=== PATIENT | male | born 1950 | race Caucasian/White ===

== ENCOUNTER 2020-03-02 23:52 | Inpatient (IN) ==
[2020-03-03] MEDS ORDERED: DUONEB (A & A) INH ONE (00:12)
[2020-03-03 00:53] LABS: BASO# 0.07 X1000 (0.0-0.2); BASO% 0.6 % (0.0-0.8); EOS# 0.66 X1000 (0.0-0.7); EOS% 5.3 % (0.0-10.0); HEMATOCRIT 45.2 % (42.0-52.0); HEMOGLOBIN 14.7 g/dL (14.0-18.0); IMM GRAN# 0.05 X1000 (0.0-0.04); IMM GRAN% 0.4 % (0.0-0.5); LYMPH% 13.7 % (20.5-51.1); MCH 29.2 PG (27-31); MCHC 32.5 g/dL (33-37); MCV 89.9 FL (81-99); MONO# 1.39 X1000 (0.11-0.59); MONO% 11.2 % (1.7-9.3); MPV 10.5 FL (7.4-10.4); NEUT# 8.54 X1000 (1.4-6.5); NEUT% 68.8 % (42.2-75.2); PLT 238 X1000 (130-400); RBC 5.03 XMIL (4.7-6.1); RDW 13.2 % (11.5-14.5); WBC 12.41 X1000 (4.8-10.8)
[2020-03-03 01:05] LABS: AGAP 14; ALB/GLOB RATIO 1.4; ALBUMIN 4.3 g/dL (3.5-5.0); ALKALINE PHOSPHATASE 71 U/L (32-122); BUN 16 mg/dL (8-22); CALCIUM 9.2 mg/dL (8.8-10.2); CHLORIDE 97 mmol/L (98-107); COSMO 284; ESTIMATED GFR > 60; GLUCOSE 131 mg/dL (70-104); GOT 20 U/L (10-34); GPT 24 U/L (10-44); POTASSIUM 4.4 mmol/L (3.5-5.1); SODIUM 141 mmol/L (136-145); TCO2 30 mmol/L (25-35); TOTAL BILIRUBIN 0.26 mg/dL (0.20-1.00); TOTAL PROTEIN 7.3 g/dL (6.3-8.3)
[2020-03-03 01:07] LABS: CK PROFILE 211 U/L (24-204)
[2020-03-03 01:27] LABS: CK INDEX 2.4 (0.0-2.5); CK-MB 5.08 ng/mL (0.0-5.0)
--- NOTE | 2020-03-03 01:34 | PROVIDER DOCUMENTATION ---
This chart was entered by Shayy Melendrez Scribe, acting as scribe for John Funez MD. HPI-Respiratory General - General Stated Complaint: sob Time Seen by Provider: 03/03/20 00:11 Source: patient Allergies/Adverse Reactions: Patient Allergies Allergy/AdvReac Type Severity Reaction Status Date / Time No Known Allergies Allergy Verified 01/01/20 13:24 Home Medications: Home Medication List Medication Instructions Recorded Confirmed Last Taken Type Albuterol Sulfate [Proair Hfa] 1 - 2 puff IH TID PRN 11/18/15 01/01/20 10/31/17 History Hydrocodone/APAP 10 mg/325 mg 1 each PO TID 11/18/15 10/31/17 10/31/17 History [[place]-10] [place]-3 Fatty Acids/Fish Oil [Fish 1 each PO DAILY 11/18/15 01/01/20 10/31/17 History Oil 1,000 mg Softgel] Pantoprazole [Protonix] 40 mg PO DAILY 11/18/15 10/31/17 10/31/17 History Simvastatin 20 mg PO DAILY 11/18/15 01/01/20 10/31/17 History Amlodipine [Norvasc] 5 mg PO DAILY #0 tablet 11/22/15 01/01/20 10/31/17 Rx Cyclobenzaprine [Flexeril] 10 mg PO TID #20 tab 10/31/17 Unknown Rx Furosemide 20 mg PO DAILY 10/31/17 10/31/17 10/31/17 History Ibuprofen [Motrin] 800 mg PO Q8H PRN PRN #20 tab 10/31/17 Unknown Rx Omeprazole 20 mg PO DAILY #20 tablet.dr 10/31/17 01/01/20 Unknown Rx Albuterol Sulfate [Ventolin Hfa] 2 puff INH DAILY 01/01/20 01/01/20 Unknown History Cephalexin 500 mg PO BID #14 cap 01/01/20 Unknown Rx - History of Present Illness-Resp Nature of Presenting Problem: pt is a 69 yr old male presenting via EMS from home. pt reports chronic shortness of breath and cough, worse today. pt reports cough, sneezing and sore throat, denies fever/chills. pEMS reports pt room air o2 was 89%, after 4lpm NC and a duoneb tx pt o2 99%. pt does admits chest pain with cough Quality of Pain: reports: none Severity in ED: reports: moderate Onset/Duration: reports: this morning Timing: reports: getting worse Exposure: reports: unknown cause Cough Quality/Degree: reports: moderate, productive cough Episode Frequency: chronic episodes Current Respiratory Medication Therapy: Initiated A/A nebulizer (without relief) Modifying Factors: improves with: exertion (worsens), coughing (induces chest pain) Associated Symptoms: reports: chest pain/soreness, cough, shortness of breath, wheezing. denies: fever/chills, nasal congestion Similar Symptoms Previously?: Yes Recently seen or treated by another doctor?: Yes Review of Systems - Adult - REVIEW OF SYSTEMS - ADULT Constitutional: denies: chills, fever Eyes: reports: no symptoms reported Ears, Nose, Mouth & Throat: reports: no symptoms reported Cardiovascular: denies: chest pain, palpitations, syncope Respiratory: reports: chronic cough, cough, dyspnea on exertion, pleurisy, shortness of breath, wheezing Gastrointestinal: denies: abdominal pain, diarrhea, nausea, vomiting Genitourinary: denies: dysuria, frequency, flank pain Musculoskeletal: denies: muscle aches, muscle weakness Integumentary: reports: no symptoms reported Neurological: denies: dizziness/vertigo, headache/migraines, syncope Psychiatric: reports: no symptoms reported Endocrine: reports: no symptoms reported Hematologic/Lymphatic: reports: no symptoms reported Allergic/Immunologic: reports: no symptoms reported All Other Systems: Reviewed and Negative Past History - Adult - PAST MEDICAL HISTORY-ADULT Review of Records: reports: Old Records Reviewed, Nursing Assessment Review, Medications Reviewed, Social history reviewed & non-contributory. Major Childhood Illnesses: reports: denies history Cardiovascular: reports: HTN, hyperlipidemia Respiratory: reports: asthma Gastrointestinal: reports: denies history Obstetrical/Gynecological: reports: denies history Genitourinary: reports: denies history Musculoskeletal: reports: denies history Neurological: reports: denies history Endocrine/Immune: reports: denies history Other Conditions: reports: other cancer (skin) - IMMUNIZATION STATUS Childhood Immunizations: See Nurse Assessment Flu Vaccine: See Nurse Assessment - FAMILY HISTORY Family History: reviewed, not pertinent - SOCIAL HISTORY Smoking: denies Substance Use: denies Living Situation: family Physical Exam-General - PHYSICAL EXAM-ADULT Initial Vital Signs Reviewed: Yes - CONSTITUTIONAL General Appearance: alert, no apparent distress - EYES Eyes: PERRL/EOMI - HEAD, EARS, NOSE, MOUTH & THROAT HENMT: normocephalic/atraumatic, normal ENT inspection. negative: moist mucous membranes (dry oral mucosa) - NECK Neck: non-tender, full range of motion, supple, normal inspection - RESPIRATORY Respiratory: chest non-tender, no respiratory distress, accessory muscle use, wheezing (diffuse wheezing), increased rate - CARDIOVASCULAR Cardiovascular: normal peripheral pulses, tachycardia - GASTROINTESTINAL (ABDOMEN) Abdominal Exam: normal bowel sounds, non tender, soft, hernia (ventral wall hernia) - LYMPHATIC Lymphatic: no adenopathy - MUSCULOSKELETAL Back Exam: normal inspection Extremity: normal range of motion, non-tender, pedal edema (trace) - SKIN Integumentary: normal color, normal turgor, warm/dry - NEUROLOGIC Neurologic: grossly normal - PSYCHIATRIC Psych/Mental Status: normal mood/affect Progress - PLAN OF CARE/RESULTS Progress/Plan/Lab Results: Vital Signs - 8 hr 03/03/20 00:32 03/03/20 00:43 Temperature 98.6 F Pulse Rate 115 H 110 H Respiratory Rate 29 H 25 H Blood Pressure 139/90 O2 Sat by Pulse Oximetry 96 96 Laboratory Results - last 24 hr 03/03/20 03/03/20 03/03/20 00:28 00:28 00:28 WBC RBC Hgb Hct MCV MCH MCHC RDW Std Deviation Plt Count MPV Immature Gran % (Auto) Neut % (Auto) Lymph % (Auto) [place] % (Auto) Eos % (Auto) Baso % (Auto) Immature Gran # (Auto) Neut # (Auto) Lymph # (Auto) [place] # (Auto) Eos # (Auto) Baso # (Auto) PTT (Actin FS) Sodium 141 Potassium 4.4 Chloride 97 L Carbon Dioxide 30 Anion Gap 14 BUN 16 Creatinine 1.0 Estimated GFR/1.73 m2 > 60 BUN/Creatinine Ratio 16 Glucose 131 H Calculated Osmolality 284 Calcium 9.2 Total Bilirubin 0.26 AST 20 ALT 24 Alkaline Phosphatase 71 Creatine Kinase 211 H Creatine Kinase Index 2.4 CK-MB (CK-2) 5.08 H Troponin T High Sens 16 Nwe-N-Vzazpuxnurk Pept 170 Total Protein 7.3 Albumin 4.3 Globulin 3.0 Albumin/Globulin Ratio 1.4 Plasma Lactate 03/03/20 03/03/20 03/03/20 00:28 00:28 00:28 WBC 12.41 H RBC 5.03 Hgb 14.7 Hct 45.2 MCV 89.9 MCH 29.2 MCHC 32.5 L RDW Std Deviation 13.2 Plt Count 238 MPV 10.5 H Immature Gran % (Auto) 0.4 Neut % (Auto) 68.8 Lymph % (Auto) 13.7 L [place] % (Auto) 11.2 H Eos % (Auto) 5.3 Baso % (Auto) 0.6 Immature Gran # (Auto) 0.05 H Neut # (Auto) 8.54 H Lymph # (Auto) 1.70 [place] # (Auto) 1.39 H Eos # (Auto) 0.66 Baso # (Auto) 0.07 PTT (Actin FS) 28.7 Sodium Potassium Chloride Carbon Dioxide Anion Gap BUN Creatinine Estimated GFR/1.73 m2 BUN/Creatinine Ratio Glucose Calculated Osmolality Calcium Total Bilirubin AST ALT Alkaline Phosphatase Creatine Kinase Creatine Kinase Index CK-MB (CK-2) Troponin T High Sens [id number]-Jquoywqbpah Pept Total Protein Albumin Globulin Albumin/Globulin Ratio Plasma Lactate 1.0 Orders Category Date Time Status Cardiac Monitoring NOW Care 03/03/20 00:38 Active NEWS Score >or=5:Order NEWS Bundle S.O. NOW Care 03/03/20 00:38 Active Notify Provider of NEWS Score NOW Care 03/03/20 00:38 Active CHEST-PORTABLE [RAD] Stat Exams 03/03/20 00:10 Taken BLOOD CULTURE [BLDCUL] Stat Lab 03/03/20 00:10 Results CBC WITH ELECTRONIC DIFF [HEME] Stat Lab 03/03/20 00:28 Completed CK PROFILE [SP CHEM] Stat Lab 03/03/20 00:28 Completed COMPREHENSIVE METABOLIC PANEL [CHEM] Stat Lab 03/03/20 00:28 Completed LACTATE, PLASMA [CHEM] Lab 03/03/20 03:45 Uncollected LACTATE, PLASMA [CHEM] Lab 03/03/20 06:45 Uncollected LACTATE, PLASMA [CHEM] Q3H Lab 03/03/20 00:28 Completed PRO B-NATRIURETIC PEPTIDE Stat Lab 03/03/20 00:28 Completed PTT [COAG] Stat Lab 03/03/20 00:28 Completed TROPONIN T HIGH SENSITIVITY Stat Lab 03/03/20 00:28 Completed URINALYSIS W/POSS RFLX CULT [URINALYSIS] Stat Lab 03/03/20 00:38 Uncollected Albuterol 2.5MG/Ipratrop 0.5MG [Duoneb (A & A)] Med 03/03/20 00:12 Discontinued 9 ml INH NOW ONE Azithromycin 500 mg/Ns [Zithromax 500 mg/Ns] Med 03/03/20 02:00 Active 500 mg in 250 ml IV Q24H CefTRIAXONE [Rocephin] 1 gm Med 03/03/20 01:50 Discontinued 0.9% Sodium Chloride Inj [Ns] 50 ml IV NOW Aerosol Treatments Routine Oth 03/03/20 00:15 Completed Aerosol Treatments Stat Oth 03/03/20 00:15 Completed O2 Per Protocol Stat Oth 03/03/20 00:38 Completed Result Diagrams: 03/03/20 00:28 03/03/20 00:28 - REASSESSMENT Reassessment #1 Time Reassessed: 00:55 Status: improving - EKG 1 Time of EKG reading by physician:: 00:13 EKG Read and Signed by:: John Funez EKG Interpretation (*Must complete 3 of following elements*): Abnormal (left posterior fasicular block) Rate: 113 Rhythm: sinus tach [place]: normal QRS: normal ID Interval: normal ST Wave: normal - CONSULTS/PCP/HOSPITALIST Notification #1 *Consult/PCP/Hospitalist*: d/w Dr Martinez Time Discussed: 01:55 Consult Disposition: Admit Departure - Departure Date of Disposition Decision: 03/03/20 Time of Disposition Decision: 02:05 DIAGNOSIS: Acute exacerbation of chronic obstructive pulmonary disease (COPD), Acute respiratory failure with hypoxemia Disposition: ADMITTED INPATIENT 09 Certified Medical Emergency: Emergent Condition: Stable - Critical Care Note This patient required my direct & personal management of CC.: No Attestation - Physician/ RUDY Attestation Patient care was provided by Advanced Practice Provider:: No The physician spent face to face time with patient:: Yes Advanced Practice Provider documentation review:: Supervising physician onsite and consulted in the evaluation and care of this patient. The physician did have a face to face encounter with the patient. This chart was documented by the indicated scribe, (Shayy Melendrez Scribe) and accurately reflects the services I performed and decisions made by me, John Funez MD, as attested by the provider's signature.
[2020-03-03] MEDS ORDERED: ROCEPHIN 1 GM in NS 50 ML IV ONE (01:50)
[2020-03-03] MEDS: ZITHROMAX 500 MG/NS 500 MG/250 ML IVPB IV SCH (02:00)
[2020-03-03] MEDS ORDERED: SOLU-MEDROL IV ONE (02:40)
[2020-03-03 03:02] LABS: HEMOGLOBIN A1C 5.9 % (4.8-6.0)
[2020-03-03 03:42] LABS: URINE SOURCE CLEAN CATCH
[2020-03-03] MEDS ORDERED: TYLENOL PO PRN (03:59)
[2020-03-03] MEDS ORDERED: ZOFRAN IV PRN (03:59)
[2020-03-03] MEDS ORDERED: DUONEB (A & A) INH SCH (04:00)
[2020-03-03 04:10] LABS: BILIRUBIN URINE NEGATIVE (NEGATIVE); BLOOD URINE NEGATIVE (NEGATIVE); COLOR STRAW; GLUCOSE URINE NEGATIVE (NEGATIVE); KETONE URINE NEGATIVE (NEGATIVE); LEUKOCYTES URINE NEGATIVE (NEGATIVE); NITRITE URINE NEGATIVE (NEGATIVE); PROTEIN URINE NEGATIVE (NEGATIVE); TURBIDITY URINE CLEAR (CLEAR); UROBILINOGEN URINE NORMAL (NORMAL)
[2020-03-03 04:11] LABS: UR EPITHELIAL CELLS <10 /HPF (<10); URINE BACTERIA NEGATIVE /HPF; URINE RBC <10 /HPF (<10); URINE WBC <10 /HPF (<10)
[2020-03-03] MEDS: NS 1,000 ML IV SCH ×2 (04:27→21:21)
[2020-03-03] MEDS: LOVENOX SUBQ SCH (04:27)
[2020-03-03 04:28] LABS: ALLEN TEST YES; BE 3.1 mmoll (-3.0-3.0); BLOOD TYPE ARTERIAL; HCO3-(ACT) 27.3 mmoll (20.0-26.0); O2(CT) 21.4 mL/dL (15.0-23.0); O2HB 97.3 % (95.0-99.0); PO2(98.6) 191 mmHg (60-100); SAMPLE BLOOD; SAO2 99.9 % (95.0-100.0); THB 15.4 g/dL (11.5-17.4); pH(98.6) 7.36 (7.35-7.45)
[2020-03-03 04:30] LABS: MODALITY NRB; PCO2(98.6) 53 mmHg (35-45)
--- NOTE | 2020-03-03 04:54 | HISTORY AND PHYSICAL ---
CHIEF COMPLAINT: Shortness of breath. HPI: Mr. Shelley is a 69-year-old male who has chronic shortness of breath with COPD. States that his cough has gotten worse and the shortness of breath was worse today. He has had sneezing and sore throat. Denies any fever or chills. He was hypoxic on room air and placed on nasal cannula 4L and was brought up to 99%. He is having pain in his chest related to the cough but no true cardiac-sounding chest pain. Also he has noticed wheezing. He is a fairly poor historian. Also he is disoriented as to what year it is. He is oriented to person and place. Noted to be fairly tachypneic in the emergency room with inspiratory and expiratory wheezing. A chest x-ray showed chronic COPD changes polus/minus infiltrates. He will be admitted to [facility] for further evaluation and treatment. PAST MEDICAL HISTORY: Hypertension, degenerative disc disease in the lumbar spine, COPD, obesity. PREVIOUS SURGICAL HISTORY: Cholecystectomy. SOCIAL HISTORY: He is a previous smoker. He quit 2-3 years ago. He was over a [id number] smoker for many years. No alcohol. No illicit drugs. FAMILY HISTORY: Positive for hypertension. ALLERGIES: No known drug allergies. HOME MEDICATIONS: The list is pending. REVIEW OF SYSTEMS: A 14-point review of systems was conducted with the patient. Pertinent positives listed above in the HPI. All other systems were reviewed and found to be negative. PHYSICAL EXAMINATION: VITAL SIGNS: Temperature 98.6, pulse 110, respirations 25, blood pressure 139/90, oxygen saturation 92% on 2L nasal cannula. GENERAL: Pleasant, somewhat confused 69-year-old male lying in the ER stretcher. He is alert. He is oriented to person, place, and situation. He is disoriented to time. He is tachypneic, in mild respiratory distress. HEENT: Head is atraumatic, normocephalic. Pupils equal, round, react to light. Extraocular eye movements intact. Sclera anicteric. Conjunctiva pink. Oral mucosa is dry. NECK: Supple, no JVD, no thyromegaly. Trachea is midline. No cervical lymphadenopathy. CARDIAC: S1, S2 are appreciated. No murmurs, gallops, rubs. Heart tones are distant. LUNGS: Inspiratory and expiratory wheezing noted. Crepitations noted throughout bilateral lung sifuentes. Decreased airway entry. ABDOMEN: Protuberant, soft and nondistended, nontender. Bowel sounds hypoactive all 4 quadrants. No pulsatile mass. No organomegaly. EXTREMITIES: No clubbing, cyanosis or edema. 2+ pedal pulses bilaterally. GENITOURINARY: No bladder distention. Patient voids. Otherwise deferred. NEUROLOGICAL: Is alert and oriented to person, place and situation. Disoriented to time. Cranial nerves 2-12 appear to be grossly intact. DIAGNOSTIC DATA: A chest x-ray shows chronic COPD changes plus/minus infiltrate. LABORATORY DATA: WBC 12.41, hemoglobin 14.7, hematocrit 45.2, platelet count 238,000. Sodium 141, potassium 4.4, chloride 97, carbon dioxide 30, BUN 16, creatinine 1, glucose 131. ASSESSMENT: 1. Chronic obstructive pulmonary disease. 2. Probable bacterial pneumonia. 3. Hypertension. 4. Chronic pain syndrome. 5. Hyperlipidemia. PLAN: Admit patient to the [facility]. DuoNebs q.6h. Will give Solu-Medrol 125 mg now. Will give Solu- Medrol IV 60 mg every 8 hours for 3 doses. Check hemoglobin A1c. Will give azithromycin and Rocephin IV. DuoNebs q.6h. Place on healthy heart diet. Will restart his home medications once they are reconciled. Further recommendations based on patient's clinical course. Dictated by MELIDA Avila for Tavon Martinez MD cc: MELIDA Avila MD
--- NOTE | 2020-03-03 06:42 | Diag Imaging Result Doc PS360 ---
CHEST-PORTABLE - 03/03/2020 INDICATION: sob COMPARISON: 01/05/2019 FINDINGS: The lungs are normally expanded and clear. Heart size and mediastinal contours are normal. No pneumothorax or pleural effusion. IMPRESSION: Negative exam. Electronically signed by Alfonso Mendosa 03/03/2020 6:40 AM
--- NOTE | 2020-03-03 07:04 | EKG Report ---
Test Performed on : 03/03/2020 00:13:40 AM Test Reason : ER Blood Pressure : / mmHG Vent. Rate : 113 BPM Atrial Rate : 113 BPM P-R Int : 190 ms QRS Dur : 106 ms QT Int : 322 ms P-R-T Axes : 000 141 143 degrees QTc Int : 441 ms Sinus tachycardia. Left posterior fascicular block Abnormal ECG When compared with ECG of 18-NOV-2015 22:21, fusion complexes are no longer present Unconfirmed Result
[2020-03-03] MEDS: SOLU-MEDROL IV SCH ×2 (11:08→19:12)
[2020-03-03] MEDS: ROCEPHIN 1 GM in NS 50 ML IV SCH (11:08)
--- NOTE | 2020-03-03 11:38 | PROGRESS NOTE ---
DATE: 03/03/2020 The patient admitted with progressive cough and dyspnea. May have been slightly hypoxic in route, but was at 96 on 2 L here. Later transitioned to non- rebreather for reasons that are not entirely clear. Has been sitting and saturating 99 to 100 on that so will wean oxygen down. Initial chest x-ray not really showing any thickening, but currently on empiric antibiotics for possible pneumonia with Rocephin and azithromycin. Does have some wheezing and decreased air entry on exam, so favor a viral illness with COPD exacerbation, on IV steroids. He was on nebulizer treatments, but stopped that and changed him over to inhaler until his Covid status is confirmed. ABG shows likely chronic hypercapnic respiratory failure, but may have a small acute component as his pH is level on the low normal side. PO2 more than adequate at 191 on non-rebreather, also confirming that we have significant room to wean his oxygen down. Continue monitoring. VINICIO
[2020-03-03] MEDS: VENTOLIN HFA INH SCH ×4 (11:56→23:20)
[2020-03-04] MEDS ORDERED: ZITHROMAX 500 MG/NS 500 MG/250 ML IVPB IV SCH (02:00)
[2020-03-04] MEDS: ZITHROMAX 500 MG/NS 500 MG/250 ML IVPB IV SCH (03:04)
[2020-03-04] MEDS: SOLU-MEDROL IV SCH ×4 (03:05→22:31)
[2020-03-04] MEDS: VENTOLIN HFA INH SCH ×6 (04:08→22:45)
[2020-03-04 05:09] LABS: BASO# 0.02 X1000 (0.0-0.2); BASO% 0.2 % (0.0-0.8); HEMATOCRIT 43.8 % (42.0-52.0); HEMOGLOBIN 14.3 g/dL (14.0-18.0); IMM GRAN# 0.06 X1000 (0.0-0.04); IMM GRAN% 0.5 % (0.0-0.5); LYMPH# 0.93 X1000 (1.2-3.4); MCH 29.5 PG (27-31); MCHC 32.6 g/dL (33-37); MCV 90.5 FL (81-99); MONO# 0.72 X1000 (0.11-0.59); MONO% 5.4 % (1.7-9.3); MPV 10.7 FL (7.4-10.4); NEUT# 11.49 X1000 (1.4-6.5); NEUT% 86.9 % (42.2-75.2); PLT 282 X1000 (130-400); RBC 4.84 XMIL (4.7-6.1); RDW 13.2 % (11.5-14.5); WBC 13.22 X1000 (4.8-10.8)
[2020-03-04 05:31] LABS: AGAP 10; BUN 20 mg/dL (8-22); CALCIUM 9.3 mg/dL (8.8-10.2); CHLORIDE 99 mmol/L (98-107); COSMO 275; CREATININE 0.8 mg/dL (0.7-1.2); ESTIMATED GFR > 60; GLUCOSE 147 mg/dL (70-104); POTASSIUM 4.7 mmol/L (3.5-5.1); SODIUM 135 mmol/L (136-145); TCO2 26 mmol/L (25-35)
[2020-03-04 05:39] LABS: LYMPHS 14 % (21-51); SEGS 86 % (42-75)
[2020-03-04 06:20] LABS: ALLEN TEST YES; BE 0.9 mmoll (-3.0-3.0); BLOOD TYPE ARTERIAL; HCO3-(ACT) 25.6 mmoll (20.0-26.0); METHB 1.4 % (0.0-1.5); O2(CT) 21.3 mL/dL (15.0-23.0); O2HB 96.1 % (95.0-99.0); PCO2(98.6) 48 mmHg (35-45); PO2(98.6) 103 mmHg (60-100); SAMPLE BLOOD; SAO2 99.1 % (95.0-100.0); THB 15.7 g/dL (11.5-17.4); pH(98.6) 7.36 (7.35-7.45)
[2020-03-04 06:22] LABS: MODALITY VENTIMASK
[2020-03-04] MEDS: LOVENOX SUBQ SCH (09:39)
[2020-03-04] MEDS: ROCEPHIN 1 GM in NS 50 ML IV SCH (09:40)
[2020-03-04] MEDS: ZOCOR PO SCH (09:40)
--- NOTE | 2020-03-04 10:36 | Diag Imaging Result Doc PS360 ---
EXAM: CT ANGIOGRM PULMONARY ARTERIES HISTORY: Rule out PE TECHNIQUE: CT chest with intravenous contrast. Pulmonary arterial protocol with MIP images. COMPARISON: None. FINDINGS: No pleural effusions. No aortic aneurysm or dissection. No cardiomegaly. Moderate atherosclerosis. Normal opacification of the pulmonary arteries and their proximal branches. No enlarged lymph nodes. No consolidation or smaller infiltrates. No bronchiectasis. Limited images through the upper abdomen reveal fatty infiltration of the liver and a cholecystectomy. IMPRESSION: No pulmonary emboli. This exam was performed using automated exposure control, adjustment of mA or kV according to patient size, and/or use of iterative reconstruction technique. Electronically signed by Jose G Love 03/04/2020 10:33 AM
[2020-03-04] MEDS: MYLICON PO SCH (10:54)
[2020-03-04] MEDS: NORVASC PO SCH (10:54)
--- NOTE | 2020-03-04 12:33 | PROGRESS NOTE ---
DATE: 03/04/2020 Mr. Shelley was admitted with COPD exacerbation. He had persistent cough, shortness of breath. COVID-19 test has been ordered. He is under isolation at the present time. His vital signs are stable. Has persistent wheezing. Overall condition is otherwise unchanged. We just ordered a flu test, influenza virus test to make sure that he does not have the flu. He is on IV methylprednisolone, Solu-Medrol 40 mg every 6 hours, which was started just this morning. We can gradually taper that off. Overall prognosis is fair. cc: Lloyd Matute MD
--- NOTE | 2020-03-04 13:26 | CONSULTATION ---
DATE OF CONSULTATION: 03/04/2020 CHIEF COMPLAINT: Evaluation for shortness of breath and COPD exacerbation. HISTORY OF PRESENTING ILLNESS: This is a 69-year-old man, known to have COPD, presented with shortness of breath and wheezing. I sent him because of the significant AA gradient on initial blood gases and chest CT angiogram, and it came back showing no PE. PAST MEDICAL HISTORY: COPD, hypertension, chronic pain syndrome, reflux disease, hyperlipidemia, otherwise as per history of presenting illness and noncontributory. PAST SURGICAL HISTORY: As above, otherwise noncontributory. SOCIAL HISTORY: He is a remote ex-smoker. FAMILY HISTORY: Hypertension. REVIEW OF SYSTEMS: As detailed in the history of presenting illness, otherwise noncontributory. MEDICATIONS: Reviewed in the hospital and at home ALLERGIES: No known drug allergies. CURRENT MEDICATIONS IN THE HOSPITAL: Include azithromycin, ceftriaxone and methylprednisone. PHYSICAL EXAMINATION: Vital Signs: Noted. Pulse oximetry 95 percent on 3 L nasal cannula. Head and neck: Examined. Trachea midline. Chest Exam: A few bilateral wheezes and prolonged expiratory phase. Cardiac Exam: Second prolonged expiratory phase. S1, S2. Abdomen: Exam nontender. Extremity examination: +1 pedal edema. Neurologic exam: Awake and communicative. LABS/INVESTIGATIONS: CBC, CMP seen and CT angiogram as detailed above. WBCs 15.22. ASSESSMENT AND PLAN: A 69-year-old man with past history as above, came in with hypoxia, chronic respiratory failure with some acute worsening, but compensated currently and chronic obstructive pulmonary disease exacerbation. Pulmonary embolus was ruled out. Continue steroids and antibiotics. We are titrating oxygen to patient needs. cc: MD Lloyd Nixon MD [facility]
[2020-03-05] MEDS: ZITHROMAX 500 MG/NS 500 MG/250 ML IVPB IV SCH (02:11)
[2020-03-05] MEDS: SOLU-MEDROL IV SCH ×4 (02:15→21:42)
[2020-03-05] MEDS: VENTOLIN HFA INH SCH ×3 (03:59→11:19)
[2020-03-05 05:13] LABS: ALLEN TEST YES; BE 4.5 mmoll (-3.0-3.0); BLOOD TYPE ARTERIAL; HCO3-(ACT) 28.3 mmoll (20.0-26.0); METHB 1.3 % (0.0-1.5); O2(CT) 20.3 mL/dL (15.0-23.0); O2HB 92.6 % (95.0-99.0); PO2(98.6) 68 mmHg (60-100); SAMPLE BLOOD; SAO2 95.7 % (95.0-100.0); THB 15.6 g/dL (11.5-17.4); pH(98.6) 7.39 (7.35-7.45)
[2020-03-05 05:16] LABS: MODALITY CANNULA
[2020-03-05 05:17] LABS: PCO2(98.6) 51 mmHg (35-45)
[2020-03-05] MEDS: PRILOSEC PO SCH (06:02)
[2020-03-05 06:40] LABS: HEMATOCRIT 45.6 % (42.0-52.0); HEMOGLOBIN 14.8 g/dL (14.0-18.0); MCH 29.5 PG (27-31); MCHC 32.5 g/dL (33-37); MCV 90.8 FL (81-99); MPV 10.8 FL (7.4-10.4); RBC 5.02 XMIL (4.7-6.1); RDW 13.4 % (11.5-14.5); WBC 14.87 X1000 (4.8-10.8)
[2020-03-05 07:07] LABS: AGAP 9; BUN 25 mg/dL (8-22); CALCIUM 9.4 mg/dL (8.8-10.2); CHLORIDE 97 mmol/L (98-107); COSMO 282; ESTIMATED GFR > 60; GLUCOSE 136 mg/dL (70-104); POTASSIUM 4.4 mmol/L (3.5-5.1); SODIUM 138 mmol/L (136-145); TCO2 32 mmol/L (25-35)
[2020-03-05] MEDS: MYLICON PO SCH (09:47)
[2020-03-05] MEDS: ROCEPHIN 1 GM in NS 50 ML IV SCH (09:47)
[2020-03-05] MEDS: LOVENOX SUBQ SCH (09:47)
[2020-03-05] MEDS: ZOCOR PO SCH (09:47)
[2020-03-05] MEDS: NORVASC PO SCH (09:47)
--- NOTE | 2020-03-05 13:55 | PROGRESS NOTE ---
DATE: 03/05/2020 SUBJECTIVE: The patient is sitting in bed comfortably, mild wheezing and he is afebrile and not in distress. OBJECTIVE: Vital signs noted. He is afebrile. Pulse oximetry 100% on 3 L nasal cannula. Head and neck exam, trachea midline. Chest exam, bilateral wheezing. Cardiac exam, S1 and S2. Abdomen exam, nontender. Lower examination, +1 pedal edema. Neurological examination, awake and communicative. LABORATORY INVESTIGATIONS: pH 7.39, pCO2 51, PO2 68 on 3 L nasal cannula, 32% oxygen. Creatinine 1.0. CBC, CMP noted. WBCs 14.87. CBC is noted. Influenza screen was ordered and done and came back as negative. ASSESSMENT AND PLAN: 1. A 69-year-old man with chronic obstructive pulmonary disease exacerbation. 2. Chronic hypoxic respiratory failure, compensated. 3. Pulmonary embolism is ruled out. 4. Continue antibiotics and steroids and we will monitor responses thoroughly. 5. We are titrating oxygen to patient needs and closely monitoring his responses. cc: MD Lloyd Nixon MD
--- NOTE | 2020-03-05 14:30 | PROGRESS NOTE ---
DATE: 03/05/2020 SUBJECTIVE: Patient denies having any acute complaints this morning and feels much better as compared to yesterday. OBJECTIVE: Vital Signs: Temperature 97.6 degrees, pulse 76 per minute, respiratory rate 14 per minute, blood pressure 152/76, pulse oximetry 100% on 3 L of oxygen via nasal cannula. General: The patient is alert and oriented x3. He does not appear to be in any acute distress. Cardiovascular System: First and second heart sounds are audible without any murmurs or gallops. Respiratory System: Bilateral lung air entry is slightly decreased with mild expiratory wheeze present on auscultation. Gastrointestinal System: Abdomen is soft and nondistended. Normal bowel sounds are present. DIAGNOSTIC DATA: CBC shows WBC count of 14.87 with normal hemoglobin and hematocrit and normal platelet counts. Basic metabolic panel is also nondiagnostic. ABG obtained on 32% oxygen showed pH of 7.39, pCO2 51, and pO2 of 68. IMPRESSION: 1. [id number] hypoxemic respiratory failure secondary to acute chronic obstructive pulmonary disease exacerbation. 2. Hypertension. 3. Dyslipidemia. PLAN: The patient will be continued with broad-spectrum antibiotics along with bronchodilators. I am going to start him on albuterol and ipratropium bromide nebulization treatments since he is already negative for COVID-19. We will continue with methylprednisolone 40 mg IV q.6 hours along with broad-spectrum antibiotics as mentioned before. Venous thromboembolism prophylaxis will be continued with enoxaparin. He can probably be discharged home in 1 to 2 days if continues to get better. cc: MD Lloyd Patrick MD
[2020-03-05] MEDS: DUONEB (A & A) INH SCH ×2 (15:56→22:56)
[2020-03-06] MEDS: DUONEB (A & A) INH SCH ×3 (04:00→15:58)
[2020-03-06] MEDS: ZITHROMAX 500 MG/NS 500 MG/250 ML IVPB IV SCH (04:16)
[2020-03-06] MEDS: SOLU-MEDROL IV SCH ×4 (04:17→15:49)
[2020-03-06] MEDS: PRILOSEC PO SCH ×2 (04:17→06:32)
[2020-03-06 06:59] LABS: AGAP 9; BUN 23 mg/dL (8-22); CHLORIDE 96 mmol/L (98-107); COSMO 276; CREATININE 0.9 mg/dL (0.7-1.2); ESTIMATED GFR > 60; GLUCOSE 137 mg/dL (70-104); POTASSIUM 4.2 mmol/L (3.5-5.1); SODIUM 135 mmol/L (136-145); TCO2 30 mmol/L (25-35)
[2020-03-06] MEDS: NORVASC PO SCH (08:26)
[2020-03-06] MEDS: MYLICON PO SCH (08:26)
[2020-03-06] MEDS: ZOCOR PO SCH (08:27)
[2020-03-06] MEDS: ROCEPHIN 1 GM in NS 50 ML IV SCH (08:28)
[2020-03-06] MEDS: LOVENOX SUBQ SCH (10:41)
--- NOTE | 2020-03-06 13:50 | DISCHARGE SUMMARY ---
ADMISSION DATE: 03/03/2020 DISCHARGE DATE: 03/06/2020 DISCHARGE DIAGNOSES: 1. Acute on chronic hypoxemic respiratory failure secondary to acute chronic obstructive pulmonary disease exacerbation. 2. Hypertension. 3. Dyslipidemia. HOSPITAL COURSE: Mr. Shelley is a 69-year-old gentleman who was admitted to the hospital with shortness of breath and wheezing. He was noted to have acute COPD exacerbation and was therefore admitted to the floor and was given IV Solu-Medrol along with broad-spectrum antibiotics including ceftriaxone and azithromycin. He was also given bronchodilators and he was tested negative for COVID-19. His overall condition has since improved. He does have some leukocytosis but that is deemed to be secondary to IV Solu-Medrol. Since his condition has clinically improved and he does not have any wheezing any more, he will be discharged home today. His oxygenation has also improved. DISCHARGE MEDICATIONS: 1. Levofloxacin 750 mg orally once daily for 7 days. 2. Medrol Dosepak to be taken as directed. 3. Acetaminophen 650 mg every 6 hours as needed for pain and fever. 4. Albuterol inhaler 2 puffs 4 times a day as needed for wheezing. 5. Furosemide 20 mg orally once daily in the morning. 6. Potassium gluconate 600 mg orally once daily. 7. Fish Oil 1000 mg orally once daily. 8. Amlodipine 5 mg orally once daily. 9. Omeprazole 20 mg orally once daily in the morning. 10. Simethicone 160 mg orally once daily. 11. Simvastatin 20 mg orally once daily at bedtime. 12. [place] 10 mg 3 times a day as needed for chronic arthritis pain. 13. Cyclobenzaprine 10 mg orally 3 times a day as needed for muscle spasms. FOLLOWUP: He will follow up with Dr. Matute in his office in approximately 5 days. CONDITION: Stable. DISPOSITION: Home. cc: MD Lloyd Patrick MD
--- NOTE | 2020-03-06 14:16 | PROGRESS NOTE ---
DATE: 03/06/2020 SUBJECTIVE: The patient is sitting in a chair and has less wheezing. Afebrile and less short of breath. OBJECTIVE: Vital Signs: Noted and examined. Trachea midline. Vital signs are seen. Chest Examination: Less wheezing than before. Cardiac Examination: S1, S2. Abdomen Examination: Nontender. Lower Extremity Examination: There is +1 pedal edema. Neurological Examination: Awake and communicative. Labs and Investigations: CMP and CBC seen for today. WBCs 14.87. Potassium is 4.2, creatinine 0.9. ASSESSMENT AND PLAN: 1. A 69-year-old man with chronic obstructive pulmonary disease exacerbation. 2. Chronic hypoxic respiratory failure, compensated. 3. He is on antibiotics and steroids, and we are monitoring responses thoroughly. 4. We will titrate on oxygen to patient needs daily and closely monitor his responses. cc: MD Lloyd Nixon MD
[2020-03-06 15:54] VITALS: BP 171/78
== END 2020-03-06 17:17 | disposition home or self-care (01) | DRG 190 ==
LOC: ED 23:52 → 2N 03-03 03:23 → SUATTDRO 03-03 03:23
PROVIDERS: ADMIT Internal Medicine; ATTEND Internal Medicine